=== PATIENT | female | born 2000 ===

== ENCOUNTER 2025-05-29 09:54 | Outpatient (AMB) | payer MEDICAID, SELFPAY ==
--- NOTE | 2025-05-29 09:57 | AMB.OBINITIA ---
Vital Signs 05/29/25 10:05 Height 1.55 m Height Method Stated Weight 66.791 kg Weight Measurement Method Standing Scale BMI 27.8 BP 125/80 Blood Pressure Source Automatic Cuff Blood Pressure Location Left Upper Arm Position Sitting Respiration 16 Pulse 120 H Pulse Source Monitor Temp 67.2 F L Temp Source Oral Pulse Oximetry (%) 97 Oxygen Delivery Method Room Air Allergies/Home Meds Allergies & Medications Allergies No Known Allergies Allergy (Verified 05/29/25 10:08) Medication Reconciliation No Known Home Medications 05/29/25 [History Confirmed 05/29/25] Intake Visit Data Collection New Patient or Established: New Patient (never been to [facility]) Reason for Visit:: OB TRANSFER Seen by Clinical Staff ONLY (RN/MA): No Air Brakes Inspector Required: No Do You Feel Safe at Home: Yes Authorities Contacted: N/A PCP or OBGYN visit in last 3 months: Yes Hx Now: Yes Are you currently on any form of Control: No Last menstrual period: 01/03/25 Pain Present Currently: No Pain Scale Used: Moreau-Fierro/Numerical Pain scale:: 0 Smoking Status Smoking Status: Never smoker Questionnaires Covid-19 Vaccine Questionnaire Has patient been vacinated for Covid-19 Have you been vacinated for Covid-19: No PHQ-9 PHQ-2 Over the last 2 weeks, how often have you been bothered by any of the following problems? 1. Little interest or pleasure in doing things: not at all 2. Feeling down, depressed, or hopeless: not at all Total score: 0 PHQ-9 3. Trouble falling or staying asleep, or sleeping too much: Not at all 4. Feeling tired or having little energy: Not at all 5. Poor appetite or overeating: Not at all 6. Feeling bad about yourself - or that you are a failure or have let yourself or your family down: Not at all 7. Trouble concentrating on things, such as reading the newspaper or watching television: Not at all 8. Moving or speaking so slowly that other people could have noticed? - Or the opposite - being so fidgety or restless that you have been moving around a lot more than usual: not at all 9. Thoughts that you would be better off or of hurting yourself in some way: Not at all Total score: 0 If you checked off any problems, how difficult have these problems made it for you to do your work, take care of things at home, or get along with other people?: not difficult at all Source: Developed by Drs. Sameer Dowell, Rebecca Luis, Artemio Caceres and colleagues, with an educational kia from [employer]. Depression screen completed yes Social History Living Situation History Marital Status: Single Lives With: Alone Housing: House Tobacco History Smoking Status: Never smoker Second Hand Smoke Exposure: No Alcohol History Alcohol Intake: Never Domestic Abuse History Do You Feel Safe at Home: Yes History of Present Illness HPI Narrative 24-year-old 1 para 0 for OBI. Patient is a transfer from [facility] with records. Her last. Was February 06, 2025. Estimated due date November 13, 2025. Patient has not had any problems with . Denies social habits. Denies surgery. Denies chronic illness. She is very sure of her dates. Reports slight movement. Patient had a negative Pap. Drug screen negative. Thyroid negative. Rubella nonimmune. Hematocrit 13/40 and platelets 2271. Patient is A+, antibody screen negative, HIV negative, hepatitis B negative, hep C negative, RPR is nonreactive. Rubella nonimmune. GC and Chlamydia are negative. And cystic fibrosis screen was negative. Patient has good support and follow-up. Baby is involved OB Initial Visit OB Flowsheet OB Flowsheet Initial Weight: Not Recorded Date <del>?</del> EGA Weight BP Alb Glu CTX Pres Fundal ht FHR Mov Dilation Station Effacement Hx Notes Visit Note 05/29/25 <del>?</del> 16w 0d 66.791 kg 125/80 absent unknown 16 145 active 24 yo , for OBI with records, no ob complaints, light fm, no leaking,bleeding, UC schedule anatomy scan at [facility], NIPT/AFP ,sma today. continue PNV, sab precaution, rtc 4 week obc Menstrual History Menstrual reliability: definite Flow: normal Menstrual regularity: regular Monthly: Yes Age at menarche: 14 On control pills at conception: No OB History : 1 Para: 0 Hx # Pregnancies: 0 Hx Total # of Abortions (Spontaneous & Elective): 0 # of Living Children: 0 Infection History & Risk Evaluation History of STDs: none HIV risk evaluation: low risk Hepatitis B risk evaluation: low risk Patient or partner has history of Genital Herpes: No Varicella/chicken pox status: immunized Genetic Screening & History Genetic Screening/Teratology Counseling - Includes patient, baby's father, or anyone in either family with: 1. Patient's age 35 years or older as of estimated date of delivery: No 2. Thalassemia (Faroese, [place]an, Mediterranean, or Background); MCV less than 80: No 3. Neural Tube Defect (Meningomyelocele, Spina Bifida, or Anencephaly): No 4. Congenital Heart Defect: No 5. Down Syndrome: No 6. Zi-Sachs (Ashkenazi Lutheran, Cajun, Kosovan [place]): No 7. Afshin Disease (Ashkenazi Lutheran): No 8. Familial Dysautonomia (Ashkenazi Lutheran): No 9. Sickle Cell Disease or Trait (): No 10. Hemophilia or other blood disorders: No 11. Muscular Dystrophy: No 12. Cystic Fibrosis: No 13. Chiquita's Chorea: No 14. Mental Retardation/Autism: No 15. Other inherited genetic or chromosomal disorder: No 16. Maternal Metabolic Disorder (EG,TYPE 1 Diabetes, PKU): No 17. Patient or baby's father had a child with defects not listed above: No 18. Recurrent loss or a stillbirth: No 19. Medications (including supplements, vitamins, herbs or otc drugs)/illicit/recreational drugs/alcohol since last menstrual period: No 20. Any other: No Infection History 1. Live with someone with TB or exposed to TB: No 2. Rash or viral illness since last menstrual period: No 3. Hepatitis B,C: No Other (see comments) Source: [employer] Review of Systems Review of Systems Systems Reviewed: All systems reviewed, normal except as documented Exam General Limitations: no limitations General Appearance: alert, in no apparent distress, comfortable, cooperative, healthy appearing, well developed and well groomed Head Head exam: atraumatic, normocephalic and normal inspection ENT ENT exam: Present normal exam, normal oropharynx and mucous membranes moist Chest Chest inspection: Present normal inspection and symmetric chest wall rise Resp Respiratory exam: Present normal lung sounds bilaterally Card Cardiovascular exam: Present regular rate, normal rhythm and normal heart sounds Abdominal Abdominal exam: Present soft and normal bowel sounds Psych Psychiatric exam: Present normal affect and normal mood Office Procedures OBC Clinic LOC & Office Proc's Nursing/Assessment Patient Status: Established Patient OB Clinic Nursing Assessment: Medication Reconciliation, Update PMH in EMR and Vital Signs OB Clinic Coordination of Care: Consent,records obtained, informed consent, Education Simp Pt/Fam, Lab and Imaging orders, Results/Orders obtained and Staff clarify orders Special Needs: Heart tones Established Patient Charge Established Patient Point Assignment: 110 Established Patient Point Charge: EP Level 3 (80-115) Assessment & Plan Diagnosis / Problem List (1) Encounter for supervision of high risk in second trimester, antepartum: Status: Acute Plan schedule MFM at [facility], AFP,NIPT and sma today, discuss lab, ptl precaution, continue PNV, rtc 4 week obc Additional Plan Follow Up: 4 Weeks (obc)
[2025-05-29 10:05] VITALS: BP 125/80; PULSE 120; RESP 16; TEMP 19.6; O2SAT 97; BMI 27.8
== END 2025-05-29 10:34 | disposition home or self-care (01) ==
LOC: HODSOBC 09:54
PROVIDERS: Supervising Provider Advanced Practice Midwife; Visit Provider Advanced Practice Midwife
DX: O09.92 Supervision of high risk pregnancy, unspecified, second trimester (principal); Z3A.16 16 weeks gestation of pregnancy
CPT/HCPCS: 99213; G0463

== ENCOUNTER 2025-06-26 08:34 | Outpatient (AMB) | payer MEDICAID, SELFPAY ==
[2025-06-26 08:44] VITALS: BP 118/74; PULSE 116; RESP 18; TEMP 36.6; O2SAT 97; BMI 27.9
--- NOTE | 2025-06-26 08:44 | AMB.OBVISIT ---
Vital Signs 06/26/25 08:44 Height 1.55 m Height Method Stated Weight 67.188 kg Weight Measurement Method Standing Scale BMI 27.9 BP 118/74 Blood Pressure Source Automatic Cuff Blood Pressure Location Right Upper Arm Position Sitting Respiration 18 Pulse 116 H Pulse Source Monitor Temp 97.9 F Temp Source Temporal Artery Scan Pulse Oximetry (%) 97 Oxygen Delivery Method Room Air Allergies/Home Meds Allergies & Medications Allergies No Known Allergies Allergy (Verified 06/26/25 08:45) Medication Reconciliation No Known Home Medications 05/29/25 [History Confirmed 06/26/25] Intake Visit Data Collection New Patient or Established: Established Patient (seen at [facility] within 3 years) Reason for Visit:: OBC Seen by Clinical Staff ONLY (RN/MA): No Airplane Electrical Repairer Required: No Do You Feel Safe at Home: Yes Authorities Contacted: N/A PCP or OBGYN visit in last 3 months: Yes Date of Last PCP or OBGYN visit: 05/29/25 Hx Now: Yes Are you currently on any form of Control: No Pain Present Currently: No Pain Scale Used: Moreau-Fierro/Numerical Pain scale:: 0 Smoking Status Smoking Status: Never smoker Immunizations Flu Vaccine in the Last 12 Months: No Flu Vaccine Exclusion Criteria: No Exclusion Criteria Questionnaires Covid-19 Vaccine Questionnaire Has patient been vacinated for Covid-19 Have you been vacinated for Covid-19: No PHQ-9 PHQ-2 Over the last 2 weeks, how often have you been bothered by any of the following problems? 1. Little interest or pleasure in doing things: not at all 2. Feeling down, depressed, or hopeless: not at all Total score: 0 PHQ-9 3. Trouble falling or staying asleep, or sleeping too much: Not at all 4. Feeling tired or having little energy: Not at all 5. Poor appetite or overeating: Not at all 6. Feeling bad about yourself - or that you are a failure or have let yourself or your family down: Not at all 7. Trouble concentrating on things, such as reading the newspaper or watching television: Not at all 8. Moving or speaking so slowly that other people could have noticed? - Or the opposite - being so fidgety or restless that you have been moving around a lot more than usual: not at all 9. Thoughts that you would be better off or of hurting yourself in some way: Not at all Total score: 0 If you checked off any problems, how difficult have these problems made it for you to do your work, take care of things at home, or get along with other people?: not difficult at all Source: Developed by Drs. Sameer Dowell, Rebecca Luis, Artemio Caceres and colleagues, with an educational kia from [employer]. Depression screen completed yes Social History Living Situation History Marital Status: Unknown Lives With: Alone Housing: House Tobacco History Smoking Status: Never smoker Second Hand Smoke Exposure: No Alcohol History Alcohol Intake: Never Domestic Abuse History Do You Feel Safe at Home: Yes Care OB Visit Log OB Flowsheet Initial Weight: Not Recorded Date <del>?</del> EGA Weight BP Alb Glu CTX Pres Fundal ht FHR Mov Dilation Station Effacement Hx Notes Visit Note 05/29/25 <del>?</del> 16w 0d 66.791 kg 125/80 absent unknown 16 145 active 24 yo , for OBI with records, no ob complaints, light fm, no leaking,bleeding, UC schedule anatomy scan at [facility], NIPT/AFP ,sma today. continue PNV, sab precaution, rtc 4 week obc 06/26/25 <del>?</del> 20w 0d 67.188 kg 118/74 absent unknown 20 154 active MFM appointment in [place] August 04. Reports good movement. Denies any leaking, bleeding, contractions. No OB complaints Keep appointment with [facility] August 04. Discussed diet and weight. Continue prenatals. Return in 4 weeks OB check Keep appointment with [facility] August 04. Discussed diet and weight. Continue prenatals. Return in 4 weeks OB check, pt has appt in [place] AMINA Calculator Estimated Delivery Date Method Current WG Current Estimate 11/13/25 LMP (Certain) 20w 0d Notes Visit Date: 06/26/25 Last Updated by: Chelsie Owens CNM 06/26: SMA/AFP/NIPT-/Male Visit Date: 05/29/25 Last Updated by: Chelsie Owens CNM OB panel: A+,abs-, rpr;;nr, rub ni, hbsag-,hiv-,hc-, GC/CT-, UT-, CF-, pap: NL, ,TSH wnl Office Procedures OBC Clinic LOC & Office Proc's Nursing/Assessment Patient Status: Established Patient OB Clinic Nursing Assessment: Medication Reconciliation, Update PMH in EMR and Vital Signs OB Clinic Coordination of Care: Complex Care and Chronic Disease 1-5, Education Complex Pt/Fam, Consent,records obtained, informed consent, Lab and Imaging orders, Results/Orders obtained and Staff clarify orders Special Needs: Heart tones Established Patient Charge Established Patient Point Assignment: 140 Established Patient Point Charge: EP Level 4 (120-155) Assessment & Plan Diagnosis / Problem List (1) Encounter for supervision of high risk in second trimester, antepartum: Status: Acute Plan Continue prenatals. Discussed labor precautions. Discussed diet and weight. Keep appointment August 04 with [facility]. Return in 4 weeks OB check Additional Plan Follow Up: 4 Weeks (obc next)
== END 2025-06-26 09:04 | disposition home or self-care (01) ==
LOC: HODSOBC 08:34
PROVIDERS: Supervising Provider Advanced Practice Midwife; Visit Provider Advanced Practice Midwife
DX: O09.92 Supervision of high risk pregnancy, unspecified, second trimester (principal); Z3A.20 20 weeks gestation of pregnancy
CPT/HCPCS: 99214; G0463

== ENCOUNTER 2025-07-25 09:52 | Outpatient (AMB) | payer MEDICAID, SELFPAY ==
[2025-07-25 10:07] VITALS: BP 121/83; PULSE 139; RESP 18; TEMP 36.7; O2SAT 97; BMI 29.1
--- NOTE | 2025-07-25 10:07 | OBCLNT_ITS ---
Vital Signs 07/25/25 10:07 Height 1.55 m Height Method Stated Weight 70.023 kg Weight Measurement Method Standing Scale BMI 29.1 BP 121/83 Blood Pressure Source Automatic Cuff Blood Pressure Location Right Upper Arm Position Sitting Respiration 18 Pulse 139 H Pulse Source Monitor Temp 98.1 F Temp Source Temporal Artery Scan Pulse Oximetry (%) 97 Oxygen Delivery Method Room Air Allergies/Home Meds Allergies & Medications Allergies No Known Allergies Allergy (Verified 07/25/25 10:08) Medication Reconciliation No Known Home Medications 05/29/25 [History Confirmed 07/25/25] Immunizations Immunizations Flu Vaccine in the Last 12 Months: No Flu Vaccine Exclusion Criteria: Refused by Patient Care OB Visit Log OB Flowsheet Initial Weight: Not Recorded Date -?-?-?-?-?-?-?-?-?-?-?-?- EGA Weight BP Alb Glu CTX Pres Fundal ht FHR Mov Dilation Station Effacement Hx Notes Visit Note 05/29/25 -?-?-?-?-?-?-?-?-?-?-?-?- 16w 0d 66.791 kg 125/80 absent unknown 16 145 active 24 yo , for OBI with records, no ob complaints, light fm, no leaking,bleeding, UC schedule hugo zenaida scan at [facility], NIPT/AFP ,sma today. continue PNV, sab precaution, rtc 4 week obc 06/26/25 -?-?-?-?-?-?-?-?-?-?-?-?- 20w 0d 67.188 kg 118/74 absent unknown 20 154 active MFM appointment in [place] August 04. Reports good movement. Denies any leaking, bleeding, contractions. No OB complaints Keep appointment with [facility] August 04. Discussed diet and weight. Continue prenatals. Return in 4 weeks OB check Keep appointment with [facility] . Discussed diet and weight. Continue prenatals. Return in 4 weeks OB check, pt has appt in [place] 07/25/25 -?-?-?-?-?-?-?-?-?-?-?-?- 24w 1d 70.023 kg 121/83 absent unknown 24 145 active Reports good movement. Denies leaking, bleeding, contractions. Patient did not do her third trimester labs she lost the sheet. And maternal- medicine scheduled for August 04 Keep appointment with maternal- medicine for ultrasound. Reorder third trimester labs. Discussed labor precaution return. AMINA Calculator Estimated Delivery Date Method Current WG Current Estimate 11/13/25 LMP (Certain) 24w 1d Notes Visit Date: 06/26/25 Last Updated by: Chelsie Owens CNM 06/26: SMA/AFP/NIPT-/Male Visit Date: 05/29/25 Last Updated by: Chelsie Owens CNM OB panel: A+,abs-, rpr;;nr, rub ni, hbsag-,hiv-,hc-, GC/CT-, UT-, CF-, pap: NL, ,TSH wnl Office Procedures OBC Clinic LOC & Office Proc's Nursing/Assessment Patient Status: Established Patient OB Clinic Nursing Assessment: Medication Reconciliation, Update PMH in EMR and Vital Signs OB Clinic Coordination of Care: Complex Care and Chronic Disease 1-5, Education Complex Pt/Fam, Consent,records obtained, informed consent, Lab and Imaging orders, Results/Orders obtained and Staff clarify orders Special Needs: Heart tones Established Patient Charge Established Patient Point Assignment: 140 Established Patient Point Charge: EP Level 4 (120-155) Assessment & Plan Diagnosis / Problem List (1) Encounter for supervision of high risk in second trimester, antepartum: Status: Acute Plan labor precautions. Ordered third trimester labs again. Keep appointment with maternal- medicine for August 04. Return in 4 weeks OB check Additional Plan Follow Up: 4 Weeks (obc)
== END 2025-07-25 10:54 | disposition home or self-care (01) ==
LOC: HODSOBC 09:52
PROVIDERS: Supervising Provider Advanced Practice Midwife; Visit Provider Advanced Practice Midwife
DX: O09.92 Supervision of high risk pregnancy, unspecified, second trimester (principal); Z3A.24 24 weeks gestation of pregnancy; Z28.21 Immunization not carried out because of patient refusal
CPT/HCPCS: 99214; G0463